=== PATIENT | male | born 1985 | race African-American/Black ===

== ENCOUNTER 2021-07-19 20:01 | Emergency (ER) | payer OTHER ==
[~2021-07-19] VITALS: Ht 177.8 cm; Wt 95.5 kg
[2021-07-19 20:51] VITALS: BP 125/87
--- NOTE | 2021-07-19 21:59 | PHYS DOC ---
Past Medical History Past Surgical History: Other Additional Past Surgical Histo: KNEE REPAIR, LEFT FEMUR REPAIR General Adult EDM: Chief Complaint: SKIN RASH/ABSCESS HPI: HPI: Patient is a 36 year old male who presents with itchy rash across his upper extremities and torso. Patient states that the rash started on his arm 3 days ago while at work. It has now spread across both arms and his shoulders back and anterior torso. He states that the discomfort is "burning." He states he took allergy medicine this morning without any symptom relief. Patient denies any new detergents or soaps. He has no other complaints. Review of Systems: Review of Systems: ROS negative or noncontributory except as mentioned in HPI. Heart Score: C/O Chest Pain: No Allergies: Allergies: Allergies Coded Allergies Type Severity Reaction Last Updated Verified codeine Adverse Reaction Mild ABD PAIN 07/19/21 Yes Physical Exam: PE: Constitutional: Well developed, well nourished, no acute distress, non-toxic appearance. HENT: Normocephalic, atraumatic, bilateral external ears normal, oropharynx moist, no oropharyngeal swelling, no macroglossia, nose normal. Eyes: EOMI, conjunctiva normal, no discharge. Neck: Normal range of motion, no stridor. Thorax: Equal thoracic expansion, no increased work of breathing. Skin: Erythematous rash noted across anterior and posterior torso and upper extremities with pinpoint macules. Skin otherwise warm, dry. Extremities: Nocyanosis, no clubbing, ROM intact, no edema. Neurologic: Alert and oriented x4, normal motor function, normal sensory function, no focal deficits noted. Current Patient Data: Vital Signs: Vital Signs Date Time Temp Pulse Resp B/P (MAP) Pulse Ox O2 Delivery O2 Flow Rate FiO2 07/19/21 20:51 98.1 75 18 125/87 (100) 97 Room Air 98.1 Course & Med Decision Making: Course & Med Decision Making Pertinent Labs and Imaging studies reviewed. (See chart for details) Patient eloped the emergency department before he was able to receive treatment. I did verbalize what medications he should take at home, but he did not receive steroid. Dragon Disclaimer: Li Disclaimer: This electronic medical record was generated, in whole or in part, using a voice recognition dictation system. Departure Departure Impression: Primary Impression: Eloped from emergency department Additional Impression: Acute idiopathic urticaria Disposition: 07 LEFT AWOL/ELOPED Condition: GUARDED Patient Instructions: Contact Dermatitis, [id number], Hives, [id number] Additional Instructions: Take BENADRYL per box instructions, but double the dose at night. Take PEPCID per box instructions. Take a daily antihistamine, such as ZYRTEC or CLARITIN or JASON daily. [facility] Hours: Meg Yeager PA-C Thursday - Thursday [id number] 8:00 am - 5:00 [place] [address] EMERGENCY DEPARTMENT GENERAL DISCHARGE INSTRUCTIONS Thank you for coming to [facility] Emergency Department (ED) today and trusting us with you care. We trust that you had a positive experience in our Emergency Department. If you wish to speak to the department management, you may call the director at . YOUR FOLLOW UP INSTRUCTIONS ARE FOLLOWS: 1. Follow up with your primary care doctor. If you do not have a primary doctor, please ask for a resource list of physicians or clinics that may be able to assist you with follow up care. 2. The emergency provider has interpreted your imaging studies, if any were ordered. The radiology logistics management specialist also reviewed them. If there is a change in the findings, you will be notified in 48 hours when at all possible. 3. If a lab test or culture has been done, your results will be reviewed and you will be notified if you need a change in treatment. 4. Follow instructions verbalized to you and refer to the printouts if needed. ADDITIONAL INSTRUCTIONS AND INFORMATION: 1. Your care today has been supervised by a physician who is specially trained in emergency care. Many problems require more than one evaluation for a complete diagnosis and treatment. We recommend that you schedule your follow up appointment as recommended to ensure complete treatment of you illness or injury. If you are unable to obtain follow up care and continue to have a problem, or if your condition worsens, we recommend that you return to the ED. 2. We are not able to safely determine your condition over the phone nor are we able to give sound medical advice over the phone. For these safety reasons, if you call for medical advice we will ask you to come to the ED for further evaluation. 3. If you have any questions regarding these discharge instructions please call the ED at . SAFETY INFORMATION: In the interest of safety, wellness, and injury prevention; we encourage you to wear your seat belt, if you smoke; quite smoking, and we encourage family to use a protective helmet for bicycling and other sporting events that present an increased risk for head injury. IF YOUR SYMPTOMS WORSEN OR NEW SYMPTOMS DEVELOP, OR YOU HAVE CONCERNS ABOUT YOUR CONDITION; OR IF YOUR CONDITION WORSENS WHILE YOU ARE WAITING FOR YOUR FOLLOW UP APPOINTMENT; EITHER CONTACT YOUR PRIMARY CARE DOCTOR, THE PHYSICIAN WHOSE NAME AND NUMBER YOU WERE GIVEN, OR RETURN TO THE ED IMMEDIATELY. DAMIEN CLAYTON July 19, 2021 21:59
[2021-07-19] MEDS ORDERED: DEXAMETHASONE SOD PHOS 20 MG/5 ML VIAL. IM ONE (22:00)
== END 2021-07-19 22:32 | disposition left against medical advice (07) ==
LOC: ER 20:01
DX: L50.1 Idiopathic urticaria (principal); Z88.5 Allergy status to narcotic agent
CPT/HCPCS: 99282